=== PATIENT | female | born 1930 | race Caucasian/White ===

== ENCOUNTER 2017-04-22 11:44 | Inpatient (IN) | payer OTHER ==
[2017-04-22] MEDS ORDERED: MORPHINE SULFATE INJ 2 MG INJ IVP ONE ×2 (11:49→13:28)
--- NOTE | 2017-04-22 11:52 | DR.GENAD ---
HPI - Complaint/Symptoms Chief Complaint Doctors Comments: Family states the patient was fine when they got up this morning and they left her with a family member for a few minutes and when they came back she has been yelling stating she is hurting all over. Daughter states she could not get her comfortable and she called 911. States the home health nurse was there yesterday and she was doing fine. Family states she did not noticed her right leg being swollen when she bathed her this morning. States she is bed ridden and she has not fallen. - Nurses notes reviewed Nurses Notes Review: Yes - Source History Provided: Patient, Family Member, EMS - Mode of Arrival Mode of Arrival: EMS - Timing Came on: Suddenly - Duration Duration: Constant How lon Duration: Hours - Location Location: hurting all over - Severity Severity: Moderate, Severe - Modifying Factors Worsens:: nothing Improves:: nothing PMH - PMH Past Medical History: Coronary Artery Disease, Hypertension, Diabetes Past Surgical History: Yes Surgical History: Other - Family History Family Medical History: Diabetes Mellitus, Coronary Artery Disease, Hypertension - Social History Do you use any recreational Drugs:: No ROS - Review of Systems Constitutional: No Symptoms Reported. negative: See HPI, Chills, Diaphoresis, Fever, Malaise, Weakness, Irritable, Fatigue, Loss of Appetite, Other Eyes: No Symptoms Reported ENTM: No Symptoms Reported Respiratoy: No Symptoms Reported. negative: See HPI, Productive Cough, Non- Productive Cough, Moist Cough, Dry Cough, Hacking Cough, Barking Cough, Brassy Cough, Orthopnea, Short of Breath, Stridor, Wheezing, Hemoptysis, Other Cardiovascular: Chest Pain Gastrointestinal/Abdominal: No Symptoms Reported. negative: See HPI, Abdominal Pain, Constipation, Diarrhea, Nausea, Vomiting, Food Intolerance, Other Genitourinary: No Symptoms Reported Neurological: No Symptoms Reported, Anxiety, Problems Walking Musculoskeletal: Right, Leg Integumentary: No Symptoms Reported, Lesions (multiple bruising arms and legs), Bruises Hematologic/Lymphatic: No Symptoms Reported Endocrine: No Symptoms Reported Psychiatric: No Symptoms Reported, Anxiety PE - Vital Signs Vitals: Temperature 98.2 F Pulse Rate [Left Radial] 72 Pulse Rate 72 Respiratory Rate 18 Blood Pressure [Right Arm] 155/69 Blood Pressure [Left Arm] 119/58 Blood Pressure 194/86 O2 Sat by Pulse Oximetry 99 - General Limitations: No Limitations General Appearance: Alert, In Distress (moderate) - Head Head Exam: Normal Inspection, Atraumatic, Normocephalic - Eyes Eye exam: Normal Appearance, PERRL, EOMI. negative: Scleral Icterus, Conjunctival Injection, Nystagmus, Miosis, Mydrasis, Periorbital Swelling, Periorbital Tenderness, Other - ENT ENT Exam: Normal Exam, Normal Oropharynx, Normal External Ear Exam, Mucous Membranes Moist, TM's Normal Bilaterally External Ear Exam: Normal External Inspection TM/Canal Exam: Bilateral Normal Nose Exam: Normal Nose Exam Mouth Exam: Normal Inspection. negative: Drooling, Trismus, Lip Swelling, Tongue Elevation, Tongue Swelling, Laceration, Other Throat Exam: Normal Inspection. negative: Tonsillar Erythema, Tonsillomegaly, Tonsillar Exudate, R Peritonsillar Mass, L Peritonsillar Mass, Muffled Voice, Other - Neck Neck Exam: Normal Inspection, Full ROM, Trachea Midline - Chest Chest Inspection: Normal Inspection, Symmetric Chest Wall Rise. negative: Tenderness, Rash, Abscess, Other - Respiratory Respiratory Exam: Normal Lung Sounds Bilat Respiratory Exam: Bilateral Clear to Auscultation - Cardiovascular Cardiovascular Exam: Regular Rate, Normal Rhythm, Normal Heart Sounds - Abdominal Exam Abdominal Exam: Normal Inspection, Normal Bowel Sounds, Soft Abdominal Tenderness: negative: RUQ, RLQ, LUQ, LLQ, Epigastrium, Suprapubic, Diffuse, Mild, Moderate, Severe, Other - Extremities Extremities Exam: Normal Inspection, Full ROM, Normal Capillary Refill, Joint Swelling (right knee swelling) - Back Back Exam: Normal Inspection, Full ROM - Neurologic Neurological Exam: Alert, Oriented X3, CN II-XII Intact, Reflexes Normal. negative: Normal Gait (gait not tested) - Psychiatric Psychiatric Exam: Normal Affect, Normal Mood, Agitated, Anxious - Skin Skin Exam: Warm, Dry, Intact, Normal Color Course - Consultation Called: 13:40 Call Returned: 13:40 (Dr. Rand to admit) - Education/Counseling Education/Counseling: Patient, Family Educated On: Treatment, Diagnosis, Prognosis, Needs for Follow Up ROR - Labs Reviewed Laboratory Results Reviewed?: Yes (all labs and x-ray results reviewed and discussed with patient and family) Result Diagrams: 04/22/17 11:45 04/22/17 11:45 Laboratory: WBC 10.3 X10^3/uL (3.6-10.0) H 04/22/17 11:45 RBC 3.87 X10^6/uL (3.5-5.4) 04/22/17 11:45 Hgb 12.7 g/dL (12.0-16.0) 04/22/17 11:45 Hct 37.7 % (36.0-47.0) 04/22/17 11:45 MCV 97.4 fL (80.0-100.0) 04/22/17 11:45 MCH 32.7 pg (27.0-34.0) 04/22/17 11:45 MCHC 33.6 g/dL (33.0-35.0) 04/22/17 11:45 RDW 14.6 % (11.6-16.5) 04/22/17 11:45 Plt Count 246 X10^3/uL (150.0-450.0) 04/22/17 11:45 MPV 8.7 fL (7.4-11.0) 04/22/17 11:45 Neut % 66.2 % (42.0-75.0) 04/22/17 11:45 Lymph % 21.6 % (21.0-51.0) 04/22/17 11:45 Lea % 7.8 % (0.0-13.0) 04/22/17 11:45 Eos % 3.6 % (0.9-2.9) H 04/22/17 11:45 Baso % 0.8 % (0.2-1.0) 04/22/17 11:45 Neut # 6.8 x10^3/uL (2.2-4.8) H 04/22/17 11:45 Lymph # 2.2 X10^3/uL (1.3-2.9) 04/22/17 11:45 Lea # 0.8 x10^3/uL (0.3-0.8) 04/22/17 11:45 Eos # 0.4 x10^3/uL (0.0-0.2) H 04/22/17 11:45 Baso # 0.1 X10^3/uL (0.0-0.1) 04/22/17 11:45 Absolute Nucleated RBC 0.0 /100WBC 04/22/17 11:45 INR Target Range - 04/22/17 11:45 INR 1.11 (0.8-1.3) 04/22/17 11:45 PTT 25.6 SECONDS (22.9-36.5) 04/22/17 11:45 PTT Comment - 04/22/17 11:45 Sodium 139 mmol/L (136-145) 04/22/17 11:45 Corrected Sodium 142 mmol/L (136-145) 04/22/17 11:45 Potassium 4.3 mmol/L (3.5-5.1) 04/22/17 11:45 Chloride 105 mmol/L (98-107) 04/22/17 11:45 Carbon Dioxide 24.7 mmol/L (21-32) 04/22/17 11:45 BUN 26 mg/dL (7-18) H 04/22/17 11:45 Creatinine 1.61 mg/dL (0.55-1.02) H 04/22/17 11:45 Est GFR (MDRD) Af Amer 39 (>60) L 04/22/17 11:45 Est GFR (MDRD) Non-Af 32 (>60) L 04/22/17 11:45 Glucose 234 mg/dL (65-99) H 04/22/17 11:45 Calcium 9.3 mg/dL (8.5-10.1) 04/22/17 11:45 Corrected Calcium 10.4 mg/dL (8.5-10.1) H 04/22/17 11:45 Magnesium 1.9 mg/dL (1.7-2.9) 04/22/17 11:45 Total Bilirubin 0.50 mg/dL (0.2-1.0) 04/22/17 11:45 AST 24 Units/L (15-37) 04/22/17 11:45 ALT 20 Units/L (12-78) 04/22/17 11:45 Alkaline Phosphatase 173 Units/L (46-116) H 04/22/17 11:45 Creatine Kinase 22 Units/L (26-192) L 04/22/17 11:45 CK-MB (CK-2) < 1.0 ng/mL (0-4.0) 04/22/17 11:45 CK/CKMB % Calc 4.6 % (<4) 04/22/17 11:45 Troponin I < 0.02 ng/mL (0-1.5) 04/22/17 11:45 Total Protein 7.5 g/dL (6.4-8.2) 04/22/17 11:45 Albumin 2.6 g/dL (3.4-5.0) L 04/22/17 11:45 Globulin 4.9 g/dL (2.5-4.5) H 04/22/17 11:45 Albumin/Globulin Ratio 0.5 Ratio (1.1-2.1) L 04/22/17 11:45 Triglycerides 170 mg/dL (0-150) H 04/22/17 11:45 Cholesterol 291 mg/dL (0-200) H 04/22/17 11:45 LDL Cholesterol, Calc 224 mg/dL (0-100) H 04/22/17 11:45 HDL Cholesterol 33 mg/dL (40-60) L 04/22/17 11:45 Cholesterol/HDL Ratio 8.8 (0.0-5.0) H 04/22/17 11:45 - XRAY XRAY Interpreted by: Radiologist (Left leg: Advanced osteopenia without definite acute radiographic abnormality of the pelvis) - EKG Rate: 77 [place]: Normal Rhythm: NSR Block: None Hypertrophy: None ST: Old, Ant, Infarct - Diagnosis Discharge Problem: Chest pain, rule out acute myocardial infarction, Intractable pain, Degenerative arthritis of hip, Osteopenia, Hyperglycemia - Discharge Plan Disposition: ADMITTED INPATIENT Condition: Stable - Follow ups/Referrals Follow ups/Referrals: Hakeem Shields [Primary Care Provider] - 3 days - Instructions
[2017-04-22] MEDS ORDERED: MORPHINE SULFATE INJ 2 MG INJ ONE ×2 (11:56→14:15)
[2017-04-22 12:09] LABS: BASOPHILS # (AUTO) 0.1 X10^3/uL (0.0-0.1); BASOPHILS % (AUTO) 0.8 % (0.2-1.0); EOSINOPHILS # (AUTO) 0.4 x10^3/uL (0.0-0.2); EOSINOPHILS % (AUTO) 3.6 % (0.9-2.9); HEMATOCRIT 37.7 % (36.0-47.0); HEMOGLOBIN 12.7 g/dL (12.0-16.0); LYMPHOCYTES # (AUTO) 2.2 X10^3/uL (1.3-2.9); LYMPHOCYTES % (AUTO) 21.6 % (21.0-51.0); MEAN CORPUSCULAR HEMOGLOBIN 32.7 pg (27.0-34.0); MEAN CORPUSCULAR HGB CONC 33.6 g/dL (33.0-35.0); MEAN CORPUSCULAR VOLUME 97.4 fL (80.0-100.0); MEAN PLATELET VOLUME 8.7 fL (7.4-11.0); MONOCYTES # (AUTO) 0.8 x10^3/uL (0.3-0.8); MONOCYTES % (AUTO) 7.8 % (0.0-13.0); NEUTROPHILS # (AUTO) 6.8 x10^3/uL (2.2-4.8); NEUTROPHILS % (AUTO) 66.2 % (42.0-75.0); PLATELET COUNT 246 X10^3/uL (150.0-450.0); RED BLOOD COUNT 3.87 X10^6/uL (3.5-5.4); RED CELL DISTRIBUTION WIDTH 14.6 % (11.6-16.5); WHITE BLOOD COUNT 10.3 X10^3/uL (3.6-10.0)
[2017-04-22 12:27] LABS: ALANINE AMINOTRANSFERASE 20 Units/L (12-78); ALBUMIN 2.6 g/dL (3.4-5.0); ALKALINE PHOSPHATASE 173 Units/L (46-116); ASPARTATE AMINO TRANSFERASE 24 Units/L (15-37); BLOOD UREA NITROGEN 26 mg/dL (7-18); CALCIUM 9.3 mg/dL (8.5-10.1); CARBON DIOXIDE 24.7 mmol/L (21-32); CHLORIDE 105 mmol/L (98-107); CHOL/HDL RATIO 8.8 (0.0-5.0); CHOLESTEROL 291 mg/dL (0-200); CKMB % 4.6 % (<4); COR CA(FOR HYPOALB) 10.4 mg/dL (8.5-10.1); COR NA(FOR HYPERGLY) 142 mmol/L (136-145); CREATINE KINASE 22 Units/L (26-192); CREATINE KINASE MB < 1.0 ng/mL (0-4.0); CREATININE 1.61 mg/dL (0.55-1.02); HDL CHOLESTEROL 33 mg/dL (40-60); MAGNESIUM 1.9 mg/dL (1.7-2.9); SODIUM 139 mmol/L (136-145); TOTAL PROTEIN 7.5 g/dL (6.4-8.2); TRIGLYCERIDES 170 mg/dL (0-150); TROPONIN I < 0.02 ng/mL (0-1.5); eGFR BLACK RACES 39 (>60); eGFR NON BLACK RACES 32 (>60)
--- NOTE | 2017-04-22 13:21 | RAD ---
Pelvis, one view Indication: Left lower extremity pain and swelling Comparison: None Findings: The bones are markedly osteopenic. Given these limitations, no definite displaced fracture or malalignment is identified. Evaluation of the sacrum is limited due to overlying bowel gas. Left h ip arthroplasty appears well positioned on the single provided AP view without definite periprostheti c fracture or loosening identified. Moderate heterotopic ossification about the proximal left femur i s noted. The SI joints and pubic symphysis appear intact. Apart from vascular calcifications, soft ti ssues are grossly unremarkable. Impression: Advanced osteopenia without definite acute radiographic abnormality of the pelvis. Reported By:
[2017-04-22] MEDS ORDERED: TORADOL 30 MG VIAL ONE (13:30)
[2017-04-22] MEDS: TORADOL 30 MG VIAL IVP STA (13:38)
[2017-04-22] MEDS ORDERED: ZOFRAN INJ 4 MG VIAL ONE (14:21)
--- NOTE | 2017-04-22 14:21 | RAD ---
Chest, one view Indication: Chest pain Comparison July 13, 2013 Findings: There is stable mild cardiomegaly without congestive failure. Chronic bilateral interstitia l markings appear unchanged. No focal consolidation, effusion or pneumothorax is identified. The osse ous thorax is unremarkable. Impression: No acute cardiopulmonary process. Reported By:
[2017-04-22] MEDS ORDERED: ZOFRAN INJ 4 MG VIAL IVP ONE (14:24)
--- NOTE | 2017-04-22 15:02 | RAD ---
History: Right lower extremity pain and swelling. Technique: AP and lateral views of the right femur. 4 radiographs total. Comparison:NONE Findings: There is generalized osteopenia. No acute fracture or dislocation. There is moderate osteoarthrosis o f the medial femorotibial compartment of the knee. Impression: 1. No acute osseous abnormalities identified. 2. Osteopenia 3. Osteoarthrosis of the knee Reported By:
[2017-04-22] MEDS ORDERED: NS 1000 ML 1,000 ML ONE (20:17)
[2017-04-23 06:17] LABS: BASOPHILS # (AUTO) 0.1 X10^3/uL (0.0-0.1); BASOPHILS % (AUTO) 0.7 % (0.2-1.0); EOSINOPHILS # (AUTO) 0.5 x10^3/uL (0.0-0.2); HEMATOCRIT 34.8 % (36.0-47.0); HEMOGLOBIN 11.8 g/dL (12.0-16.0); LYMPHOCYTES # (AUTO) 2.9 X10^3/uL (1.3-2.9); LYMPHOCYTES % (AUTO) 29.6 % (21.0-51.0); MEAN CORPUSCULAR HEMOGLOBIN 33.2 pg (27.0-34.0); MEAN CORPUSCULAR HGB CONC 33.8 g/dL (33.0-35.0); MEAN CORPUSCULAR VOLUME 98.1 fL (80.0-100.0); MEAN PLATELET VOLUME 8.9 fL (7.4-11.0); NEUTROPHILS # (AUTO) 5.4 x10^3/uL (2.2-4.8); NEUTROPHILS % (AUTO) 54.7 % (42.0-75.0); PLATELET COUNT 217 X10^3/uL (150.0-450.0); RED BLOOD COUNT 3.54 X10^6/uL (3.5-5.4); RED CELL DISTRIBUTION WIDTH 14.4 % (11.6-16.5); WHITE BLOOD COUNT 9.8 X10^3/uL (3.6-10.0)
[2017-04-23 10:06] LABS: ALBUMIN 2.6 g/dL (3.4-5.0); CALCIUM 9.1 mg/dL (8.5-10.1); CARBON DIOXIDE 23.6 mmol/L (21-32); COR CA(FOR HYPOALB) 10.2 mg/dL (8.5-10.1); CREATININE 1.67 mg/dL (0.55-1.02)
[2017-04-23] MEDS ORDERED: POTASSIUM CHLORIDE PO SCH (12:15)
[2017-04-23] MEDS ORDERED: TORADOL 30 MG VIAL ONE (12:45)
[2017-04-23] MEDS: TORADOL 30 MG VIAL IVP STA (12:49)
[2017-04-23] MEDS: PROzac PO SCH ×2 (14:47→21:22)
[2017-04-23] MEDS: PriLOSEC PO SCH (14:48)
[2017-04-23] MEDS: SYNTHROID 75 mcg TAB PO SCH (14:48)
[2017-04-23] MEDS: COREG TAB 12.5 MG PO SCH ×2 (14:48→21:22)
[2017-04-23] MEDS: ASPIRIN 81 MG CHEWTAB PO SCH (14:48)
[2017-04-23] MEDS: DEMADEX PO SCH (14:48)
[2017-04-23] MEDS: PLAVIX PO SCH (14:49)
[2017-04-23] MEDS ORDERED: TORADOL 30 MG VIAL IVP ONE (15:19)
--- NOTE | 2017-04-23 21:02 | CT ---
Lumbar spine CT without contrast Indication: Acute on chronic back pain. Comparison: None available. Technique: Helical images of the lumbar spine were obtained without the use of intravenous contrast. Reformatted coronal and sagittal images are also reviewed. Findings: There are chronic appearing anterior wedge compression fractures of the T12 and L3 vertebral bodies w ith approximately 15-25% loss of vertebral body height anteriorly . No acute lumbar spine fracture is seen. There is prominent osteopenia limiting sensitivity for fracture detection however. There is gr nola 1 anterolisthesis of L4 on L5, likely related to severe degenerative facet arthropathy at this le makayla. The visualized sacrum and posterior iliac grossly intact as well. There is mild discogenic degenerative change at L1-2 and L2-3 with more moderate to severe discogenic degenerative changes noted at L3-4 through L5-S1. There are diffuse disc bulges at these levels with vacuum disc phenomenon. There is at least mild spinal canal stenosis at L3-4 and L5-S1 with moderate to severe spinal canal stenosis at L4-5. There is also advanced degenerative facet arthropathy at th natalie levels with severe right neural foraminal stenosis noted at L4-5. More mild bilateral neural fora domi stenosis is noted these levels as well. Incidental note is made of severe atherosclerotic disease of the abdominal aorta with associated ecta torsten measuring up to 2.8 cm. There is no visualized free air or free fluid within the abdomen and pelv is. Impression: 1. No displaced acute lumbar spine fracture is seen. Severe osteopenia. 2. Moderate to severe multilevel lumbar spondylosis as detailed above which is most advanced at L4-5 where there is moderate to severe spinal canal and severe right neural foraminal stenosis. 3. Chronic appearing mild anterior wedge compression fractures of T12 and L3. 4. Severe atherosclerotic disease of the abdominal aorta with infrarenal abdominal aortic ectasia. Reported By:
--- NOTE | 2017-04-23 21:06 | CT ---
Pelvis CT without contrast Indication: Acute on chronic pelvic pain. Questionable injury. Comparison: None available. Technique: Helical images of the bony pelvis were obtained without the use of intravenous contrast. R eformatted coronal and sagittal images are also reviewed. Findings: There is severe osteopenia limiting sensitivity for fracture detection. There is a left bipolar hip a rthroplasty and resultant streak artifacts limit evaluation of adjacent structures. No convincing per iprosthetic fracture is seen. There is significant lucency along the proximal femoral stem which coul d reflect loosening. There is also prominent heterotopic ossification adjacent to the greater trochan ter. The right femoral head is well positioned within the acetabulum with mild to moderate degenerati ve change. No displaced fracture identified. There is no pubic symphysis or sacroiliac joint diastase s. Please see separately dictated lumbar spine CT for detailed description of lumbar spine findings. The visualized intrapelvic structures are unremarkable apart from atherosclerotic disease of the visu alized pelvic vasculature. No body wall contusion or hematoma is seen. Musculature about the hips is grossly intact asymmetric fatty atrophy noted of the left-sided gluteal muscles. Impression: 1. No CT evidence of acute pelvic fracture although severe osteopenia limits sensitivity. 2. Left bipolar hip arthroplasty with lucency surrounding the proximal femoral stem which could refle ct changes of loosening. 3. Moderate degenerative changes of the right hip and sacroiliac joints. Reported By:
[2017-04-23] MEDS: TYLENOL 500 MG TAB EXTRA STRENGTH PO PRN (21:22)
[2017-04-23] MEDS: K-DUR TAB 20 MEQ PO SCH (21:23)
[2017-04-24 05:32] LABS: BASOPHILS # (AUTO) 0.1 X10^3/uL (0.0-0.1); BASOPHILS % (AUTO) 0.6 % (0.2-1.0); EOSINOPHILS # (AUTO) 0.6 x10^3/uL (0.0-0.2); HEMATOCRIT 30.4 % (36.0-47.0); HEMOGLOBIN 10.4 g/dL (12.0-16.0); MEAN CORPUSCULAR HEMOGLOBIN 33.1 pg (27.0-34.0); MEAN CORPUSCULAR HGB CONC 34.2 g/dL (33.0-35.0); MEAN CORPUSCULAR VOLUME 96.9 fL (80.0-100.0); MEAN PLATELET VOLUME 8.7 fL (7.4-11.0); MONOCYTES # (AUTO) 0.9 x10^3/uL (0.3-0.8); MONOCYTES % (AUTO) 8.9 % (0.0-13.0); NEUTROPHILS # (AUTO) 5.2 x10^3/uL (2.2-4.8); NEUTROPHILS % (AUTO) 53.5 % (42.0-75.0); PLATELET COUNT 180 X10^3/uL (150.0-450.0); RED BLOOD COUNT 3.14 X10^6/uL (3.5-5.4); RED CELL DISTRIBUTION WIDTH 14.3 % (11.6-16.5); WHITE BLOOD COUNT 9.8 X10^3/uL (3.6-10.0)
[2017-04-24 05:44] LABS: ALANINE AMINOTRANSFERASE 20 Units/L (12-78); ALBUMIN 2.1 g/dL (3.4-5.0); ALKALINE PHOSPHATASE 141 Units/L (46-116); ASPARTATE AMINO TRANSFERASE 26 Units/L (15-37); BLOOD UREA NITROGEN 32 mg/dL (7-18); CALCIUM 8.3 mg/dL (8.5-10.1); CARBON DIOXIDE 26.2 mmol/L (21-32); CHLORIDE 105 mmol/L (98-107); COR CA(FOR HYPOALB) 9.8 mg/dL (8.5-10.1); CREATININE 1.55 mg/dL (0.55-1.02); SODIUM 138 mmol/L (136-145); eGFR BLACK RACES 41 (>60); eGFR NON BLACK RACES 34 (>60)
[2017-04-24 09:37] VITALS: BMI 22.6
[2017-04-24] MEDS: COREG TAB 12.5 MG PO SCH ×2 (09:53→20:40)
[2017-04-24] MEDS: ASPIRIN 81 MG CHEWTAB PO SCH (09:53)
[2017-04-24] MEDS: DEMADEX PO SCH (09:53)
[2017-04-24] MEDS: K-DUR TAB 20 MEQ PO SCH ×2 (09:54→20:40)
[2017-04-24] MEDS: PriLOSEC PO SCH (09:54)
[2017-04-24] MEDS: PROzac PO SCH ×2 (09:54→20:41)
[2017-04-24] MEDS: SYNTHROID 75 mcg TAB PO SCH (09:54)
[2017-04-24] MEDS: PLAVIX PO SCH (09:57)
[2017-04-24] MEDS ORDERED: MILK OF MAGNESIA PO SCH (12:00)
[2017-04-24] MEDS ORDERED: COLACE CAP 100 MG PO SCH (12:00)
[2017-04-24] MEDS: TYLENOL 500 MG TAB EXTRA STRENGTH PO PRN (14:02)
[2017-04-24] MEDS: MILK OF MAGNESIA PO SCH (20:40)
[2017-04-24] MEDS: COLACE CAP 100 MG PO SCH (20:40)
[2017-04-25] MEDS: SOLU-Medrol 40 MG VIAL IVP SCH ×3 (00:54→13:05)
[2017-04-25] MEDS: TYLENOL 500 MG TAB EXTRA STRENGTH PO PRN ×2 (04:19→10:15)
[2017-04-25 05:18] LABS: BASOPHILS % (AUTO) 0.4 % (0.2-1.0); EOSINOPHILS # (AUTO) 0.1 x10^3/uL (0.0-0.2); EOSINOPHILS % (AUTO) 0.7 % (0.9-2.9); HEMATOCRIT 34.2 % (36.0-47.0); HEMOGLOBIN 11.5 g/dL (12.0-16.0); LYMPHOCYTES # (AUTO) 0.9 X10^3/uL (1.3-2.9); MEAN CORPUSCULAR HEMOGLOBIN 33.2 pg (27.0-34.0); MEAN CORPUSCULAR HGB CONC 33.7 g/dL (33.0-35.0); MEAN CORPUSCULAR VOLUME 98.6 fL (80.0-100.0); MEAN PLATELET VOLUME 8.9 fL (7.4-11.0); MONOCYTES # (AUTO) 0.1 x10^3/uL (0.3-0.8); MONOCYTES % (AUTO) 1.7 % (0.0-13.0); NEUTROPHILS # (AUTO) 6.8 x10^3/uL (2.2-4.8); NEUTROPHILS % (AUTO) 86.2 % (42.0-75.0); PLATELET COUNT 181 X10^3/uL (150.0-450.0); RED BLOOD COUNT 3.47 X10^6/uL (3.5-5.4); RED CELL DISTRIBUTION WIDTH 14.4 % (11.6-16.5); WHITE BLOOD COUNT 7.8 X10^3/uL (3.6-10.0)
[2017-04-25 05:24] LABS: ALBUMIN 2.3 g/dL (3.4-5.0); CALCIUM 8.7 mg/dL (8.5-10.1); CARBON DIOXIDE 28.5 mmol/L (21-32); COR CA(FOR HYPOALB) 10.1 mg/dL (8.5-10.1); CREATININE 1.43 mg/dL (0.55-1.02); TOTAL PROTEIN 6.7 g/dL (6.4-8.2)
[2017-04-25] MEDS: COREG TAB 12.5 MG PO SCH ×2 (09:41→20:16)
[2017-04-25] MEDS: PROzac PO SCH ×2 (09:42→20:16)
[2017-04-25] MEDS: PriLOSEC PO SCH (09:42)
[2017-04-25] MEDS: DEMADEX PO SCH (09:42)
[2017-04-25] MEDS: K-DUR TAB 20 MEQ PO SCH ×2 (09:42→20:16)
[2017-04-25] MEDS: PLAVIX PO SCH (09:42)
[2017-04-25] MEDS: ASPIRIN 81 MG CHEWTAB PO SCH (09:42)
[2017-04-25] MEDS: SYNTHROID 75 mcg TAB PO SCH (09:43)
--- NOTE | 2017-04-25 12:40 | DR.CONSULT ---
Consult - Consultation for Day of: Date: 04/25/17 - Chief Complaint Chief Complaint: I hurt so bad in my bottom and my leg - Allergies Allergies/Adverse Reactions: Allergies Allergy/AdvReac Type Severity Reaction Status Date / Time Sulfa (Sulfonamide Allergy Verified 04/22/17 11:51 Antibiotics) [SULFA] - History of Present Illness History of Present Illness: Pt admited for acute on chronic pain. CT revealed multiple compression fx with severe spinal stenosis at L4-L5. - Past Medical History Past Medical History: Coronary Artery Disease, Hypertension, Diabetes - Past Surgical History Surgical History: Angioplasty/Stents, Hysterectomy - Family History Family Medical History: Diabetes Mellitus, Coronary Artery Disease, Hypertension - Social History Does patient currently use any type of tobacco product: No Have you used tobacco products in the last 12 months: No Type of Tobacco Use: None Does any household member use tobacco: No Alcohol Use: None Drug Use: None - Review of Systems Constitutional: No Symptoms Reported Eyes: No Symptoms Reported ENT: No Symptoms Reported Respiratory: No Symptoms Reported Cardiovascular: Chest Pain Gastrointestinal: Abdominal Pain, Constipation Genitourinary: No Symptoms Reported Musculoskeletal: See HPI, Back Pain, Leg Pain, Foot Pain, Other Skin: No Symptoms Reported Neurological: See HPI, Weakness, Numbness - Physical Exam Vital Signs: Temperature 97.9 F Pulse Rate [Right Brachial] 77 Pulse Rate [Left Radial] 94 Pulse Rate 72 Respiratory Rate 19 Blood Pressure [Right Arm] 117/59 Blood Pressure [Left Arm] 141/68 Blood Pressure 194/86 O2 Sat by Pulse Oximetry 94 Oriented: Normal Eyes: Normal Ear: Normal Nose: Normal Throat: Normal Respiratory: Diminished Throughout Cardiovascular: Normal : Normal Auscultation: Bowel Sounds: Normal Palpation: Normal Tenderness: Normal Skin: Petechial, Bruising, Ecchymosis (over bUE and LE) Musculoskeletal: Back:Thoracic, Back:Lumbar, Back:Midline (point tender ) Psychiatric: Normal Mood Description: Calm Affect: Anxious Speech Pattern: Clear - Plan Plan: 1. Acute on Chronic Lumbar pain 2.Radiculopaty vs. Facet Hypertrophy and nerve compression. 3. Current Clopidgrel use. 1.Pt would likely benefit from either L4-L5 Dimitri or Multilevel Facet injection. 2. Stop Clopidgrel and ASA x5days and schedule as OP
[2017-04-25] MEDS: PERCOCET TAB 5/325 MG PO PRN (13:06)
[2017-04-25] MEDS: LANTISEPTIC TOP SCH ×2 (17:09→20:17)
[2017-04-25] MEDS: MILK OF MAGNESIA PO SCH (20:16)
[2017-04-25] MEDS: COLACE CAP 100 MG PO SCH (20:16)
[2017-04-26] MEDS ORDERED: FLEET ENEMA ADULT PR ONE (05:44)
[2017-04-26 05:54] LABS: BASOPHILS % (AUTO) 0.1 % (0.2-1.0); HEMATOCRIT 33.4 % (36.0-47.0); HEMOGLOBIN 11.3 g/dL (12.0-16.0); LYMPHOCYTES # (AUTO) 1.7 X10^3/uL (1.3-2.9); LYMPHOCYTES % (AUTO) 7.2 % (21.0-51.0); MEAN CORPUSCULAR HGB CONC 33.8 g/dL (33.0-35.0); MEAN CORPUSCULAR VOLUME 97.6 fL (80.0-100.0); MEAN PLATELET VOLUME 9.1 fL (7.4-11.0); MONOCYTES # (AUTO) 1.4 x10^3/uL (0.3-0.8); NEUTROPHILS # (AUTO) 19.9 x10^3/uL (2.2-4.8); NEUTROPHILS % (AUTO) 86.7 % (42.0-75.0); PLATELET COUNT 197 X10^3/uL (150.0-450.0); RED BLOOD COUNT 3.43 X10^6/uL (3.5-5.4); RED CELL DISTRIBUTION WIDTH 14.5 % (11.6-16.5)
[2017-04-26 05:56] LABS: ALBUMIN 2.3 g/dL (3.4-5.0); CALCIUM 8.8 mg/dL (8.5-10.1); CARBON DIOXIDE 27.3 mmol/L (21-32); COR CA(FOR HYPOALB) 10.2 mg/dL (8.5-10.1); CREATININE 1.54 mg/dL (0.55-1.02); TOTAL PROTEIN 6.6 g/dL (6.4-8.2)
[2017-04-26 05:57] LABS: WHITE BLOOD COUNT 22.9 X10^3/uL (3.6-10.0)
[2017-04-26] MEDS: PERCOCET TAB 5/325 MG PO PRN ×2 (06:34→14:28)
[2017-04-26] MEDS: PriLOSEC PO SCH (09:01)
[2017-04-26] MEDS: COREG TAB 12.5 MG PO SCH ×2 (09:01→20:59)
[2017-04-26] MEDS: PROzac PO SCH ×2 (09:01→20:59)
[2017-04-26] MEDS: SYNTHROID 75 mcg TAB PO SCH (09:02)
[2017-04-26] MEDS: DEMADEX PO SCH (09:02)
[2017-04-26] MEDS: K-DUR TAB 20 MEQ PO SCH ×2 (09:02→20:59)
[2017-04-26] MEDS: LANTISEPTIC TOP SCH ×4 (09:05→20:59)
[2017-04-26] MEDS: COLACE CAP 100 MG PO SCH (20:59)
[2017-04-26] MEDS: MILK OF MAGNESIA PO SCH (21:00)
[2017-04-27 06:13] LABS: BASOPHILS % (AUTO) 0.2 % (0.2-1.0); EOSINOPHILS # (AUTO) 0.2 x10^3/uL (0.0-0.2); EOSINOPHILS % (AUTO) 1.5 % (0.9-2.9); HEMATOCRIT 31.9 % (36.0-47.0); HEMOGLOBIN 10.8 g/dL (12.0-16.0); LYMPHOCYTES # (AUTO) 2.7 X10^3/uL (1.3-2.9); LYMPHOCYTES % (AUTO) 21.8 % (21.0-51.0); MEAN CORPUSCULAR HEMOGLOBIN 33.1 pg (27.0-34.0); MEAN CORPUSCULAR HGB CONC 33.9 g/dL (33.0-35.0); MEAN CORPUSCULAR VOLUME 97.4 fL (80.0-100.0); MEAN PLATELET VOLUME 9.1 fL (7.4-11.0); MONOCYTES # (AUTO) 0.9 x10^3/uL (0.3-0.8); MONOCYTES % (AUTO) 7.2 % (0.0-13.0); NEUTROPHILS # (AUTO) 8.7 x10^3/uL (2.2-4.8); NEUTROPHILS % (AUTO) 69.3 % (42.0-75.0); PLATELET COUNT 186 X10^3/uL (150.0-450.0); RED BLOOD COUNT 3.28 X10^6/uL (3.5-5.4); RED CELL DISTRIBUTION WIDTH 14.9 % (11.6-16.5); WHITE BLOOD COUNT 12.5 X10^3/uL (3.6-10.0)
[2017-04-27 06:32] LABS: ALBUMIN 2.2 g/dL (3.4-5.0); CALCIUM 8.5 mg/dL (8.5-10.1); COR CA(FOR HYPOALB) 9.9 mg/dL (8.5-10.1); CREATININE 1.52 mg/dL (0.55-1.02); TOTAL PROTEIN 6.1 g/dL (6.4-8.2)
[2017-04-27] MEDS: PERCOCET TAB 5/325 MG PO PRN (08:26)
[2017-04-27] MEDS: SYNTHROID 75 mcg TAB PO SCH (08:28)
[2017-04-27] MEDS: PROzac PO SCH (08:28)
[2017-04-27] MEDS: K-DUR TAB 20 MEQ PO SCH (08:28)
[2017-04-27] MEDS: TYLENOL 500 MG TAB EXTRA STRENGTH PO PRN (08:28)
[2017-04-27] MEDS: COREG TAB 12.5 MG PO SCH (08:28)
[2017-04-27] MEDS: DEMADEX PO SCH (08:28)
[2017-04-27] MEDS: PriLOSEC PO SCH (08:28)
[2017-04-27] MEDS ORDERED: TORADOL 15 MG VIAL IVP PRN (08:35)
[2017-04-27] MEDS ORDERED: ZOFRAN INJ 4 MG VIAL IVP PRN (08:45)
[2017-04-27] MEDS: LANTISEPTIC TOP SCH ×2 (10:52→13:15)
[2017-04-27 13:40] VITALS: BP 109/55
== END 2017-04-27 14:10 | disposition home or self-care (01) | DRG 313 ==
LOC: ER 12:31 → MED/SURG 13:59 → OBSVTOIN 04-24 16:00
PROVIDERS: ADMIT Internal Medicine; ATTEND Internal Medicine
DX: R07.89 Other chest pain (principal); R52 Pain, unspecified; E11.65 Type 2 diabetes mellitus with hyperglycemia; M85.88 Other specified disorders of bone density and structure, other site; M54.5 Low back pain; M79.662 Pain in left lower leg; R10.84 Generalized abdominal pain; F41.8 Other specified anxiety disorders; R41.82 Altered mental status, unspecified; R94.31 Abnormal electrocardiogram [ECG] [EKG]; I10 Essential (primary) hypertension; Z79.01 Long term (current) use of anticoagulants; Z79.899 Other long term (current) drug therapy; R26.89 Other abnormalities of gait and mobility
CPT/HCPCS: 36415; 71010; 72131; 72170; 72192; 73552; 80053; 80061; 82550; 82553; 83735; 84484; 85025; 85610; 85730; 93005; 93010; 96365; 96374; 96375; 99218; 99231; 99284; A4222; G0378; J1885; J2270; J2405; J2920

== ENCOUNTER → 2017-05-02 | Outpatient (CLI) | payer OTHER ==
[2017-04-27 13:40] VITALS: BP 109/55
[2017-05-02 17:20] LABS: BILIRUBIN,URINE NEGATIVE (NEGATIVE); BLOOD/HEMOGLOBIN,URINE 1+ (NEGATIVE); GLUCOSE, URINE NEGATIVE (NEGATIVE); KETONES,URINE NEGATIVE (NEGATIVE); LEUKOCYTE ESTERASE ,URINE NEGATIVE (NEGATIVE); NITRITES,URINE NEGATIVE (NEGATIVE); PH,URINE 6.5 (5.0 - 8.0); PROTEIN,URINE NEGATIVE (NEGATIVE); UROBILINOGEN,URINE NORMAL (NORMAL)
[2017-05-02 17:28] LABS: APPEARANCE,URINE CLEAR (CLEAR); BACTERIA,URINE TRACE /HPF (NEGATIVE); COLOR,URINE YELLOW (YELLOW); RBC,URINE RARE /HPF (NEGATIVE); SQUAMOUS EPITHELIAL CELL,UR MANY /HPF (NEGATIVE)
== END ==
LOC: LTCLAB 16:59
PROVIDERS: ATTEND Internal Medicine
DX: R41.82 Altered mental status, unspecified (principal); R30.9 Painful micturition, unspecified
CPT/HCPCS: 81001

== ENCOUNTER → 2017-05-03 | Day surgery (SDC) | payer OTHER ==
[~2017-05-03] MED LIST: KENALOG INJ 40 MG IM ONE; VALIUM ONE; XYLOCAINE 1% and EPINEPHRINE 1:100,000 IM ONE
--- NOTE | 2017-05-03 12:54 | DR.UPDATE ---
H&P Update History and Physical Update: History and Physical reviewed and patient examined. Changes noted: NO Yes with the following:agree with H&P from Dr Rand. acute back pain x1 week with daughter reporting pain on right to lower leg. will proceed with louis right L4-5.
[2017-05-03 13:22] VITALS: BP 101/53
== END | disposition home or self-care (01) ==
LOC: SURG1 12:00
PROVIDERS: ATTEND Internal Medicine
PROC: 3E0R3BZ Introduction of Anesthetic Agent into Spinal Canal, Percutaneous Approach (ICD-10-PCS; 2017-05-03)
PROC: 3E0R33Z Introduction of Anti-inflammatory into Spinal Canal, Percutaneous Approach (ICD-10-PCS; principal; 2017-05-03 12:00)
DX: M53.86 Other specified dorsopathies, lumbar region (principal); M54.5 Low back pain
CPT/HCPCS: 62323; 76000; J2001; J3301